=== PATIENT | female | born 1970 | race Caucasian/White ===

== ENCOUNTER 2021-10-05 12:16 | Emergency (ER) | payer OTHER ==
[2021-10-05] MEDS ORDERED: NORCO 5-325 TA1 EACH PO (15:04)
[2021-10-05] MEDS ORDERED: ONDANSETRON HCL4 MG PO (15:04)
== END 2021-10-05 16:02 | disposition home or self-care (01) ==
LOC: FER 12:16
DX: S86.912A Strain of unspecified muscle(s) and tendon(s) at lower leg level, left leg, initial encounter (principal); R11.0 Nausea; F17.210 Nicotine dependence, cigarettes, uncomplicated; W19.XXXA Unspecified fall, initial encounter; Y92.009 Unspecified place in unspecified non-institutional (private) residence as the place of occurrence of the external cause
CPT/HCPCS: 73564; Q0162